=== PATIENT | male | born 1990 | race African-American/Black ===

== ENCOUNTER 2017-03-11 15:52 | Emergency (ER) | payer SELFPAY ==
[~2017-03-11] VITALS: Ht 185.4 cm; Wt 126.8 kg
[2017-03-11] MEDS ORDERED: PERCOCET 5/31 TABLET PO (20:30)
[2017-03-11] MEDS ORDERED: ZOFRAN ODT4 MG PO (20:30)
[2017-03-11] MEDS ORDERED: MOTRIN800 MG PO (20:30)
[2017-03-11 20:38] VITALS: BP 131/88
== END 2017-03-11 20:39 | disposition left against medical advice (07) ==
LOC: EME 15:52
DX: M53.3 Sacrococcygeal disorders, not elsewhere classified (principal); W01.0XXA Fall on same level from slipping, tripping and stumbling without subsequent striking against object, initial encounter; F17.200 Nicotine dependence, unspecified, uncomplicated
CPT/HCPCS: 72100; 72220; 99281; 99285; J2270